=== PATIENT | female | born 1985 | race African-American/Black ===

== ENCOUNTER 2017-02-25 16:16 | Emergency (ER) | payer BC ==
[2017-02-25] MEDS ORDERED: Acetaminophen 500 MG TAB ONE (16:59)
[2017-02-25] MEDS ORDERED: Metoclopramide HCl 10 MG/2 ML VIAL ONE (16:59)
[2017-02-25] MEDS ORDERED: diphenhydrAMINE HCl 50 MG/ML 1 ML VIAL ONE (17:01)
[2017-02-25] MEDS ORDERED: Ketorolac Tromethamine 30 MG/ML VIAL ONE (18:37)
== END 2017-02-25 19:55 | disposition home or self-care (01) ==
LOC: ERS 16:16
DX: G43.909 Migraine, unspecified, not intractable, without status migrainosus (principal); I10 Essential (primary) hypertension; J45.909 Unspecified asthma, uncomplicated; Z79.899 Other long term (current) drug therapy
CPT/HCPCS: 96365; 96375; J1200; J1885; J2765

== ENCOUNTER 2017-06-13 18:46 | Emergency (ER) | payer BC ==
[2017-06-13] MEDS ORDERED: diphenhydrAMINE 50 MG/ML VIAL ONE (19:57)
[2017-06-13] MEDS ORDERED: Metoclopramide HCl 10 MG/2 ML VIAL ONE (19:57)
[2017-06-13 20:53] LABS: Pregnancy Test - Urine (BHCG) Negative (Negative); Pregu Control Background? CLEAR/WHITE (CLR/WHITE); Pregu Control Bar Appear? YES (CONTROL BAR); Specific Gravity 1.014 (1.002-1.036)
== END 2017-06-13 21:45 | disposition home or self-care (01) ==
LOC: ERS 18:46
DX: G43.909 Migraine, unspecified, not intractable, without status migrainosus (principal); I10 Essential (primary) hypertension; J45.909 Unspecified asthma, uncomplicated; Z79.899 Other long term (current) drug therapy
CPT/HCPCS: 81025; 96361; 96374; 96375; J1200; J2765

== ENCOUNTER 2018-08-11 21:21 | Emergency (ER) | payer BC ==
[2018-08-11] MEDS ORDERED: Ibuprofen 800 MG TAB ONE (22:00)
--- NOTE | 2018-08-11 22:52 | RAD ---
RIGHT ANKLE THREE VIEWS: 08/11/2018 HISTORY: Ankle pain. FINDINGS: There is lateral soft tissue swelling. The talar dome and ankle mortise are intact. No displaced fr acture or dislocation. IMPRESSION: No acute fracture or dislocation. POS: [facility]
== END 2018-08-11 22:50 | disposition home or self-care (01) ==
LOC: ERS 21:21
DX: S93.401A Sprain of unspecified ligament of right ankle, initial encounter (principal); I10 Essential (primary) hypertension; F32.9 Major depressive disorder, single episode, unspecified; Z79.899 Other long term (current) drug therapy; X58.XXXA Exposure to other specified factors, initial encounter

== ENCOUNTER 2018-11-14 18:10 | Emergency (ER) | payer BC ==
[2018-11-14] MEDS ORDERED: Dexamethasone 4 mg/ml Vial ONE (19:00)
[2018-11-14] MEDS ORDERED: Ibuprofen 800 MG TAB ONE (19:00)
== END 2018-11-14 19:41 | disposition home or self-care (01) ==
LOC: ERS 18:10
DX: J02.9 Acute pharyngitis, unspecified (principal); B30.9 Viral conjunctivitis, unspecified; F41.9 Anxiety disorder, unspecified; F32.9 Major depressive disorder, single episode, unspecified; Z79.899 Other long term (current) drug therapy
CPT/HCPCS: 87070; 99283; J1100

== ENCOUNTER 2019-04-10 19:27 | Emergency (ER) | payer SELFPAY | END 2019-04-10 20:23 | LOC: ERS 19:27 | DX: Z53.21 Procedure and treatment not carried out due to patient leaving prior to being seen by health care provider (principal) ==